=== PATIENT | female | born 1995 | race Two or more races ===

== ENCOUNTER 2020-03-26 17:24 | Emergency (ER) | payer SELFPAY ==
[~2020-03-26] VITALS: Ht 165.1 cm; Wt 66.0 kg
--- NOTE | 2020-03-26 18:19 | PHYS DOC ---
Past Medical History Past Medical History: No Pertinent History Past Surgical History: No Surgical History Smoking Status: Never Smoker Alcohol Use: None General Adult EDM: Chief Complaint: VAGINAL BLEEDING HPI: HPI: Patient is a 24 year old [place] speaking female who presents with 3 hours of vaginal bleeding. Patient denies any known inciting event. Reports painless, vaginal bleeding that has been scant since onset. Patient reports she established care with [facility]CHANICAL MANAGER and was seen 2 days ago for her initial visit for this planned . She denies history of STDs, denies history of ectopic , and denies any previous complications or active medical complications. Only medication she takes daily is a multivitamin. Last sexual intercourse occurred 5 days ago with same male partner, no concern for potential disease. Due to onset of painless vaginal bleeding and no other symptoms, she was concerned and presented to our emergency department for evaluation Review of Systems: Review of Systems: Constitutional: Denies fever or chills. Eyes: Denies change in visual acuity. HENT: Denies nasal congestion or sore throat. Respiratory: Denies cough or shortness of breath. Cardiovascular: Denies chest pain or edema. GI: Denies abdominal pain, nausea, vomiting, bloody stools or diarrhea. : Denies dysuria. Admits scant vaginal bleeding, has not required any pad changes since onset 3 hours ago. No clots present, bright red in appearance Musculoskeletal: Denies back pain or joint pain. Integument: Denies rash. Neurologic: Denies headache, focal weakness or sensory changes. Endocrine: Denies polyuria or polydipsia. Lymphatic: Denies swollen glands. Psychiatric: Denies depression or anxiety. Heart Score: HEART Score for Chest Pain: HEART Score for Chest Pain Response (Comments) Value History Slighlty/Non-Suspicious 0 Total 0 Risk Factors: Risk Factors: DM, Current or recent (<one month) smoker, HTN, HLP, family history of CAD, obesity. Risk Scores: Score 0 - 3: 2.5% MACE over next 6 weeks - Discharge Home Score 4 - 6: 20.3% MACE over next 6 weeks - Admit for Clinical Observation Score 7 - 10: 72.7% MACE over next 6 weeks - Early Invasive Strategies Allergies: Allergies: Allergies Coded Allergies Type Severity Reaction Last Updated Verified No Known Drug Allergies 03/26/20 No Physical Exam: PE: Constitutional: Well developed, well nourished, no acute distress, non-toxic appearance. HENT: Normocephalic, atraumatic, bilateral external ears normal, oropharynx mo ist, no oral exudates, nose normal. Eyes: PERRLA, EOMI, conjunctiva normal, no discharge. Neck: Normal range of motion, no tenderness, supple, no stridor. Cardiovascular:Heart rate regular rhythm, no murmur Lungs & Thorax: Bilateral breath sounds clear to auscultation Abdomen: Bowel sounds normal, soft, no tenderness, no masses, no pulsatile masses. Gravid abdomen Skin: Warm, dry, no erythema, no rash. : Unremarkable external genitalia, unremarkable internal genitalia, closed cervix, moderate pooling of blood in cervix, no chandelier sign, no obvious signs of trauma, no masses Back: No tenderness, no CVA tenderness. Extremities: No tenderness, no cyanosis, no clubbing, ROM intact, no edema. Neurologic: Alert and oriented X 3, normal motor function, normal sensory function, no focal deficits noted. Psychologic: Affect normal, judgement normal, mood normal. Current Patient Data: Labs: Laboratory Tests Test 03/26/20 17:43 POC Urine HCG, Qualitative Hcg positive (Negative) Vital Signs: Vital Signs Date Time Temp Pulse Resp B/P (MAP) Pulse Ox O2 Delivery O2 Flow Rate FiO2 03/26/20 17:49 97.6 89 16 165/85 (111) 98 Room Air 97.6 Radiology/Procedures: Radiology/Procedures: [facility] [address] [place] [address] IMAGING REPORT Signed PATIENT: ROBERT TORRESCOUNT: [id number] : 1995 LOCATION: ER AGE: 24 SEX: F EXAM STATUS: REG ER ORD. PHYSICIAN: CARLA ALVAREZ DO REASON: Vag Bleeding PROCEDURE: OB TRANSVAG CLINICAL HISTORY: Vag Bleeding COMPARISON: None available. TECHNIQUE: endovaginal sonography was performed FINDINGS: An intrauterine gestational sac is present. An embryo is identified .Cardiac activity is visualized and documented at a rate of 120 beats per minute. There is a small subchorionic fluid collection. Based on a crown rump length averaging 0.75 cm, the estimated gestational age is 6 weeks, 5 days. Estimated date of delivery is 11/14/2020. The right ovary measures 2.9 x 1.8 x 1.5 cm. Left ovary measures 3.1 x 2.2 x 2.1 cm. Echogenic focus anterior uterus may represent scar or small calcifications. There is no pelvic free fluid. IMPRESSION: 1. Single live intrauterine gestation with mean sonographic age of 6 weeks,5 days. The estimated date of delivery is 11/14/2020. 2. No abnormal adnexal masses 3. Small subchorionic collection likely small subchorionic hemorrhage. Electronically signed by: Nemesio Schwartz MD (03/26/2020 7:30 PM) [facility] DICTATED and SIGNED BY: NEMESIO SCHWARTZ MD DATE: 03/26/201929 Course & Med Decision Making: Course & Med Decision Making Pertinent Labs and Imaging studies reviewed. (See chart for details) Patient hemodynamically stable, asymptomatic, and in no distress during entirety of ED stay Findings of close cervix and viable single intrauterine dated at 6 weeks 5 days gestation discussed On-call MECHANICAL MANAGER called, Dr. Salter, discussed entirety of work-up. Specifically discussed findings of small subchorionic hemorrhage. Conservative management advised, all in favor for discharge home with close outpatient MECHANICAL MANAGER follow-up Strict return precautions discussed at length with good understanding by patient, all questions and concerns addressed prior to discharge. Entirety of patient's history taking and physical exam occurred with director of business applications involved Ghulam Disclaimer: Ghulam Disclaimer: This electronic medical record was generated, in whole or in part, using a voice recognition dictation system. Departure Departure Impression: Primary Impression: Vaginal bleeding before 22 weeks gestation Disposition: 01 HOME, SELF-CARE Condition: STABLE Referrals: MELANY SAMAYOA MD Patient Instructions: Vaginal Bleeding During , [id number], Vaginal Bleeding During , First Trimester Additional Instructions: [facility] [address] [place] [address] [employer] [address] [place], [place] [id number] [address] [address] [facility] [address] [place] [address] [facility] [address] [place] [address] [facility] [address] [place] [address] [address] [address] [place] [address] [facility] [address] [place] [address] [facility] [address] [place] [address] [facility] [address] [place] [address] Justicifation of Admission Dx: Justifications for Admission: Justification of Admission Dx: N/A CARLA ALVAREZ DO Mar 26, 2020 18:19
[2020-03-26 18:35] LABS: BASO % 0 % (0-3); EOS % 0 % (0-3); HEMATOCRIT 40.6 % (36.0-47.0); HEMOGLOBIN 14.1 g/dL (12.0-15.5); LYMPH # 2.2 x10^3/uL (1.0-4.8); LYMPH % 16 % (24-48); MEAN CORPUSCULAR HEMOGLOBIN 29 pg (25-35); MEAN CORPUSCULAR HGB CONC 35 g/dL (31-37); MEAN CORPUSCULAR VOLUME 85 fL (79-100); MONO # 0.8 x10^3/uL (0.0-1.1); MONO % 6 % (0-9); NEUT % 78 % (31-73); PLATELET COUNT 230 x10^3/uL (140-400); RED BLOOD COUNT 4.81 x10^6/uL (3.50-5.40); WHITE BLOOD COUNT 14.1 x10^3/uL (4.0-11.0)
[2020-03-26 18:35] LABS: CLARITY,URINE BLOODY; COLOR,URINE RED; RBC,URINE TNTC /HPF (0-2)
[2020-03-26 18:39] LABS: BACTERIA,URINE 0 /HPF (0-FEW)
[2020-03-26 18:44] LABS: CALCIUM 9.7 mg/dL (8.5-10.1); CREATININE 0.8 mg/dL (0.6-1.0); GFR 88.1; POTASSIUM 3.5 mmol/L (3.5-5.1)
[2020-03-26 18:50] LABS: ALBUMIN 4.3 g/dL (3.4-5.0); ALBUMIN/GLOBULIN RATIO 1.1 (1.0-1.7); TOTAL BILIRUBIN 0.3 mg/dL (0.2-1.0); TOTAL PROTEIN 8.2 g/dL (6.4-8.2)
--- NOTE | 2020-03-26 19:33 | RAD ---
CLINICAL HISTORY: Vag Bleeding COMPARISON: None available. TECHNIQUE: endovaginal sonography was performed FINDINGS: An intrauterine gestational sac is present. An embryo is identified .Cardiac activity is visualized and documented at a rate of 120 beats per minute. There is a small subchorionic fluid collection. Based on a crown rump length averaging 0.75 cm, the estimated gestational age is 6 weeks, 5 days. Estimated date of delivery is 11/14/2020. The right ovary measures 2.9 x 1.8 x 1.5 cm. Left ovary measures 3.1 x 2.2 x 2.1 cm. Echogenic focus anterior uterus may represent scar or small calcifications. There is no pelvic free fluid. IMPRESSION: 1. Single live intrauterine gestation with mean sonographic age of 6 weeks,5 days. The estimated date of delivery is 11/14/2020. 2. No abnormal adnexal masses 3. Small subchorionic collection likely small subchorionic hemorrhage. Electronically signed by: Nemesio Jung MD (03/26/2020 7:30 PM) TEVIN
[2020-03-26 20:25] VITALS: BP 128/64
[2020-03-28 21:07] LABS: GC PROBE Negative (Negative)
== END 2020-03-26 20:26 | disposition home or self-care (01) ==
LOC: ER 17:24
DX: O46.91 Antepartum hemorrhage, unspecified, first trimester (principal); Z3A.01 Less than 8 weeks gestation of pregnancy
CPT/HCPCS: 76817; 80053; 81001; 81025; 84702; 85025; 86850; 86900; 86901; 87086; 87491; 87591; 99284; Q0111; 36415

== ENCOUNTER 2020-10-13 17:22 | Observation (INO) | payer SELFPAY ==
[2020-10-13] MEDS ORDERED: IV RINGERS,LACTATED 1000ML 1,000 ML IV PRN (17:45)
[2020-10-13 18:20] LABS: CREATININE,RANDOM URINE 49.6 mg/dL (Not Establ.)
[2020-10-13 18:34] LABS: BASO # 0.1 x10^3/uL (0.0-0.2); BASO % 1 % (0-3); EOS % 0 % (0-3); HEMATOCRIT 32.5 % (36.0-47.0); HEMOGLOBIN 10.7 g/dL (12.0-15.5); LYMPH # 1.7 x10^3/uL (1.0-4.8); LYMPH % 16 % (24-48); MEAN CORPUSCULAR HEMOGLOBIN 26 pg (25-35); MEAN CORPUSCULAR HGB CONC 33 g/dL (31-37); MEAN CORPUSCULAR VOLUME 79 fL (79-100); MONO # 0.6 x10^3/uL (0.0-1.1); MONO % 6 % (0-9); NEUT # 8.6 x10^3/uL (1.8-7.7); NEUT % 78 % (31-73); PLATELET COUNT 134 x10^3/uL (140-400); RED BLOOD COUNT 4.11 x10^6/uL (3.50-5.40); RED CELL DISTRIBUTION WIDTH 14.7 % (11.5-14.5)
[2020-10-13 18:41] LABS: CALCIUM 9.8 mg/dL (8.5-10.1); CREATININE 0.6 mg/dL (0.6-1.0); GFR 121.8; POTASSIUM 3.9 mmol/L (3.5-5.1)
[2020-10-13 18:47] LABS: ALBUMIN 2.7 g/dL (3.4-5.0); ALBUMIN/GLOBULIN RATIO 0.7 (1.0-1.7); TOTAL BILIRUBIN 0.3 mg/dL (0.2-1.0); TOTAL PROTEIN 6.6 g/dL (6.4-8.2)
== END 2020-10-13 20:25 | disposition home or self-care (01) ==
LOC: 3 SO LND 17:22
PROVIDERS: ADMIT Obstetrics & Gynecology; ATTEND Obstetrics & Gynecology
DX: O13.3 Gestational [pregnancy-induced] hypertension without significant proteinuria, third trimester (principal); Z20.822 Contact with and (suspected) exposure to COVID-19; Z3A.35 35 weeks gestation of pregnancy
CPT/HCPCS: 36415; 59025; 80053; 82570; 84156; 85025; G0378; G0379; U0003